=== PATIENT | male | born 1950 | race Caucasian/White ===

== ENCOUNTER 2017-12-24 21:29 | Emergency (ER) | payer OTHER, MEDICARE ==
[~2017-12-24] VITALS: Ht 175.3 cm; Wt 92.1 kg
--- NOTE | 2017-12-24 22:05 | ED HEAD/FACIAL INJ COMPLAINT ---
History of Present Illness General Chief Complaint: Facial or Head Injury Stated Complaint: S/P FALL DOWN STAIR, LAC TO HEAD, -LOC Source: patient Exam Limitations: no limitations Vital Signs & Intake/Output Vital Signs & Intake/Output Vital Signs Date Time Temp Pulse Resp B/P B/P Pulse O2 O2 Flow FiO2 Mean Ox Delivery Rate 12/24 2202 96.4 73 20 146/92 95 Room Air Allergies Coded Allergies: No Known Allergies (12/24/17) Triage Nurses Notes Reviewed? yes Onset: Abrupt Severity: moderate Location: occipital Method of Injury: incised Loss of Consciousness: no loss of consciousness Associated Symptoms: BLEEDING HPI: 67 yo gentleman in prior good health on aspirin, presents after a fall. "I tripped on the front step this evening and hit my head." No LOC. No chest pain/palpitations/dizziness/syncopal prodrome. He notes a laceration on his occiput. Bleeding self resolved. He is otherwise well. Past History Travel History Traveled to [place] past 21 day No Medical History Any Pertinent Medical History? none Surgical History Surgical History: none Family History Hx Contributory? No Review of Systems Review of Systems Constitutional: Reports: no symptoms. EENTM: Reports: no symptoms. Respiratory: Reports: no symptoms. Cardiovascular: Reports: no symptoms. GI: Reports: no symptoms. Genitourinary: Reports: no symptoms. Musculoskeletal: Reports: no symptoms. Skin: Reports: no symptoms. Neurological/Psychological: Reports: no symptoms. Hematologic/Endocrine: Reports: no symptoms. Immunologic/Allergic: Reports: no symptoms. All Other Systems: Reviewed and Negative Physical Exam Physical Exam General Appearance: well developed/nourished, mild distress Head: ON OCCIPUT, 8CM LUNAR LACERATION. Eyes: Bilateral: PERRL, EOMI. Ears, Nose, Throat: normal pharynx, normal ENT inspection, hearing grossly normal Neck: normal inspection, supple, full range of motion Respiratory: normal breath sounds, chest non-tender, no respiratory distress, quiet respiration, lungs clear Cardiovascular: regular rate/rhythm Gastrointestinal: normal bowel sounds, soft, non-tender, no organomegaly Back: normal inspection, normal range of motion Extremities: normal inspection, normal capillary refill, normal range of motion, no edema Psychiatric: awake, alert, oriented x 3 Cranial Nerves: normal hearing, normal speech, PERRL Coordination/Gait: normal finger to nose, normal gait Motor/Sensory: no motor/sensory deficits Skin: intact, normal color, warm/dry Progress Differential Diagnosis: LACERATION, ICH VS OTHER. Plan of Care: Current Medications Sig/Soham Start time Last Medication Dose Stop Time Status Admin Tetanus/Diphtheria 0.5 ML ONCE ONE 12/24 2214 UNVr 12/24 Toxoids Adsorbed 12/24 (Decava) Diagnostic Imaging: Viewed by Me: CT Scan. Discussed w/RAD: CT Scan. Radiology Impression: PATIENT: SKINNY DESAI PRESENT AGE: 67 PATIENT ACCOUNT NO: [id number] : 51 LOCATION: [facility] [place] ORDERING PHYSICIAN: Jerry Abernathy MD SERVICE DATE: 12/24/17 EXAM TYPE: CAT - CT CERV SPINE WO IV CONTRAST; CT HEAD WO IV CONTRAST EXAMINATION: CT HEAD WITHOUT CONTRAST CT CERVICAL SPINE WITHOUT CONTRAST CLINICAL INFORMATION: 67-year-old man with fall and head injury. COMPARISON: None. TECHNIQUE: Imaging was performed from the skull base to vertex without intravenous administration of contrast. In addition, helical noncontrast CT imaging was acquired through the cervical spine and source images were reviewed along with axial reconstructions and sagittal and coronal MPRs. DLP: 953 mGy-cm FINDINGS: HEAD: No intracranial mass, hemorrhage, or midline shift is visualized. The ventricles and sulci are age-appropriate. No extra-axial collections are identified. The paranasal sinuses and mastoid air cells are well aerated. There is a soft tissue laceration at the right parietal convexity without evidence of an associated calvarial fracture. CERVICAL SPINE: There is no evidence of acute cervical spine fracture. Vertebral bodies remain normal in height. Alignment is anatomic. Degenerative endplate remodeling with subchondral sclerosis, marginal osteophyte formation, and mild loss of normal disc height is seen at C5-C6, C6-C7, and C7-T1. No pre- or paravertebral soft tissue abnormality is identified. Limited assessment of the lung apices is unremarkable. IMPRESSION: 1. No acute intracranial pathology. Soft tissue injury at the right parietal convexity. 2. No CT evidence of acute cervical spine fracture or traumatic subluxation. DICTATED BY: Yvette Bowman MD DATE/TIME DICTATED:12/24/172253 PLUG MAKER:BENJAMIN DATE/TIME TRANSCRIBED:2253 CONFIDENTIAL, DO NOT COPY WITHOUT APPROPRIATE AUTHORIZATION. < Electronically signed in Other Vendor System> SIGNED BY: Colby CAMPOS,Yvette 10/12 4063 Departure Departure Disposition: HOME OR SELF CARE Condition: Stable Clinical Impression Primary Impression: Head injury Secondary Impressions: Scalp laceration Departure Forms: Customer Survey General Discharge Information Procedures Laceration/Wound Repair Laceration/Wound Repair: Wound Location: head Wound's Depth, Shape: flap Wound Length (cm): 8 Irrigated w/ Saline (ccs): 100 Suture Size/Type: haven Number of Sutures: 4 Date of Last Tetanus: 12/24/17 Tetanus Status: up to date
--- NOTE | 2017-12-24 23:02 | CT SCAN REPORT ---
EXAMINATION: CT HEAD WITHOUT CONTRAST CT CERVICAL SPINE WITHOUT CONTRAST CLINICAL INFORMATION: 67-year-old man with fall and head injury. COMPARISON: None. TECHNIQUE: Imaging was performed from the skull base to vertex without intravenous administration of contrast. In addition, helical noncontrast CT imaging was acquired through the cervical spine and source images were reviewed along with axial reconstructions and sagittal and coronal MPRs. DLP: 953 mGy-cm FINDINGS: HEAD: No intracranial mass, hemorrhage, or midline shift is visualized. The ventricles and sulci are age-appropriate. No extra-axial collections are identified. The paranasal sinuses and mastoid air cells are well aerated. There is a soft tissue laceration at the right parietal convexity without evidence of an associated calvarial fracture. CERVICAL SPINE: There is no evidence of acute cervical spine fracture. Vertebral bodies remain normal in height. Alignment is anatomic. Degenerative endplate remodeling with subchondral sclerosis, marginal osteophyte formation, and mild loss of normal disc height is seen at C5-C6, C6-C7, and C7-T1. No pre- or paravertebral soft tissue abnormality is identified. Limited assessment of the lung apices is unremarkable. IMPRESSION: 1. No acute intracranial pathology. Soft tissue injury at the right parietal convexity. 2. No CT evidence of acute cervical spine fracture or traumatic subluxation.
[2017-12-24 23:38] VITALS: BP 1238/88
== END 2017-12-24 23:38 ==
LOC: ERH 21:29
DX: S01.01XA Laceration without foreign body of scalp, initial encounter (principal); S09.90XA Unspecified injury of head, initial encounter; W18.09XA Striking against other object with subsequent fall, initial encounter; Y92.9 Unspecified place or not applicable; Y93.9 Activity, unspecified
CPT/HCPCS: 90471